=== PATIENT | male | born 1940 | race Caucasian/White ===

== ENCOUNTER → 2017-05-10 | Outpatient (CLI) | payer OTHER | LOC: BHFA 14:00 | PROVIDERS: ATTEND Internal Medicine Cardiovascular Disease | DX: R01.1 Cardiac murmur, unspecified (principal) ==

== ENCOUNTER → 2018-04-14 | Outpatient (CLI) | payer OTHER, MEDICARE | LOC: CIMAGING 15:22 | PROVIDERS: ATTEND Registered Nurse | DX: Z01.818 Encounter for other preprocedural examination (principal); Z86.711 Personal history of pulmonary embolism | CPT/HCPCS: 71046-PO ==

== ENCOUNTER → 2018-05-02 | Outpatient (CLI) | payer OTHER, MEDICARE | LOC: BHFA 11:30 | PROVIDERS: ATTEND Internal Medicine Cardiovascular Disease | DX: I71.2 Thoracic aortic aneurysm, without rupture (principal) ==

== ENCOUNTER → 2018-05-03 | Outpatient (CLI) | payer OTHER, MEDICARE | LOC: BMCIMAGING 14:12 | PROVIDERS: ATTEND Orthopaedic Surgery Hand Surgery | DX: S52.572D Other intraarticular fracture of lower end of left radius, subsequent encounter for closed fracture with routine healing (principal) ==

== ENCOUNTER → 2018-05-18 | Outpatient (CLI) | payer OTHER, MEDICARE | LOC: BMCIMAGING 11:00 | PROVIDERS: ATTEND Orthopaedic Surgery Hand Surgery | DX: S52.572D Other intraarticular fracture of lower end of left radius, subsequent encounter for closed fracture with routine healing (principal); S32.301D Unspecified fracture of right ilium, subsequent encounter for fracture with routine healing; M16.0 Bilateral primary osteoarthritis of hip ==

== ENCOUNTER → 2018-06-03 | Outpatient (CLI) | payer OTHER, MEDICARE | LOC: BMCIMAGING 09:11 | PROVIDERS: ATTEND Orthopaedic Surgery Hand Surgery | DX: S52.572D Other intraarticular fracture of lower end of left radius, subsequent encounter for closed fracture with routine healing (principal) ==

== ENCOUNTER → 2018-07-04 | Outpatient (CLI) | payer OTHER, MEDICARE | LOC: BMCIMAGING 10:11 | PROVIDERS: ATTEND Orthopaedic Surgery Hand Surgery | DX: S52.572D Other intraarticular fracture of lower end of left radius, subsequent encounter for closed fracture with routine healing (principal) ==